=== PATIENT | female | born 2000 | race Caucasian/White ===

== ENCOUNTER 2018-01-21 13:35 | Emergency (ER) | payer OTHER ==
[~2018-01-21] VITALS: Ht 175.3 cm; Wt 63.5 kg
[2018-01-21] MEDS ORDERED: TESSALON PERLE100 MG PO (14:59)
[2018-01-21] MEDS ORDERED: ZPAK PO (14:59)
[2018-01-21] MEDS ORDERED: PROAIR HFA8.5 GM INH (14:59)
[2018-01-21] MEDS ORDERED: PROMETHAZINE V473 ML PO (14:59)
[2018-01-21] MEDS ORDERED: PREDNISONE 20 M20 MG PO (14:59)
[2018-01-21 15:07] VITALS: BP 116/76
--- NOTE | 2018-01-22 11:29 | EKG ---
[place] [address] ELECTROCARDIOGRAM REPORT Name: LEATHABRITT [id number] Admission: 01/21/18 Attend Phys: Discharge: 01/21/18 Date of : [birth year] Report #: [id number] THIS REPORT FOR: //name// [facility] ED Test Date: 2018-01-21 Test Time: 13:42:55 Pat Name: BRITT ZHANG Department: Room: Gender: F [employer] Trimmer: SARAH : 2000 Requested By: Julee Otoole Order Number: [id number] Sera MD: Louis Hui Measurements Intervals [place] Rate: 77 P: 71 MS: 139 QRS: 51 QRSD: 77 T: 54 QT: 343 QTc: 389 Interpretive Statements Sinus arrhythmia No previous ECG available for comparison Electronically Signed On 01-22-2018 11:29:29 CDT by Louis Hui [email or web address] <ELECTRONICALLY SIGNED> By: Louis Hui MD, [facility] 01/22/18 1129 1342 1342 Louis Hui MD, FACC /EPI
== END 2018-01-21 15:07 | disposition home or self-care (01) ==
LOC: M.ERS 13:35
DX: J20.9 Acute bronchitis, unspecified (principal); F17.210 Nicotine dependence, cigarettes, uncomplicated

== ENCOUNTER 2018-04-19 15:23 | Emergency (ER) | payer OTHER ==
[~2018-04-19] VITALS: Ht 172.7 cm; Wt 68.0 kg
[~2018-04-19 15:23] MED LIST: PREDNISONE 20 M20 MG PO; PROAIR HFA8.5 GM INH; PROMETHAZINE V473 ML PO; TESSALON PERLE100 MG PO; ZPAK PO
[2018-04-19 15:27] VITALS: BP 138/87
[2018-04-19] MEDS ORDERED: IBUPROFEN 800800 M1 PO (15:32)
== END 2018-04-19 15:52 | disposition home or self-care (01) ==
LOC: M.ERS 15:23
DX: K08.89 Other specified disorders of teeth and supporting structures (principal)

== ENCOUNTER 2019-05-13 21:38 | Emergency (ER) | payer OTHER ==
[~2019-05-13] VITALS: Ht 175.3 cm; Wt 72.3 kg
[~2019-05-13 21:38] MED LIST changes: +IBUPROFEN 800800 M1 PO
[2019-05-13 21:44] VITALS: BP 140/82
[2019-05-13] MEDS ORDERED: ULTRAM 50MG TAB50 MG PO (21:50)
[2019-05-13] MEDS ORDERED: FLEXERIL PO (21:50)
== END 2019-05-13 21:55 | disposition home or self-care (01) ==
LOC: M.ERS 21:38
DX: M54.6 Pain in thoracic spine (principal)